=== PATIENT | female | born 1970 | race Caucasian/White ===

== ENCOUNTER → 2021-02-04 | Outpatient (CLI) | payer BC | LOC: KOH-I 13:40 | DX: R06.02 Shortness of breath (principal); R05 Cough | CPT/HCPCS: 71046 ==

== ENCOUNTER 2021-11-11 18:56 | Emergency (ER) | payer SELFPAY | END 2021-11-11 22:29 | disposition home or self-care (01) | LOC: ER1 18:56 | DX: S92.021A Displaced fracture of anterior process of right calcaneus, initial encounter for closed fracture (principal); Z90.710 Acquired absence of both cervix and uterus; Z88.8 Allergy status to other drugs, medicaments and biological substances; X50.1XXA Overexertion from prolonged static or awkward postures, initial encounter | CPT/HCPCS: 73610; 73630; 99283 ==

== ENCOUNTER → 2021-12-06 | Outpatient (CLI) | payer BC | LOC: KOH-I 09:29 | DX: S92.021A Displaced fracture of anterior process of right calcaneus, initial encounter for closed fracture (principal) | CPT/HCPCS: 73630 ==

== ENCOUNTER → 2021-12-20 | Outpatient (CLI) | payer BC | LOC: KOH-I 09:18 | DX: S92.021D Displaced fracture of anterior process of right calcaneus, subsequent encounter for fracture with routine healing (principal) | CPT/HCPCS: 73630 ==

== ENCOUNTER → 2022-01-06 | Outpatient (CLI) | payer BC | LOC: KOH-I 15:36 | DX: S92.001A Unspecified fracture of right calcaneus, initial encounter for closed fracture (principal) | CPT/HCPCS: 73630 ==

== ENCOUNTER → 2022-02-01 | Outpatient (CLI) | payer BC | LOC: LAB 11:41 | DX: U07.1 COVID-19 (principal); J01.00 Acute maxillary sinusitis, unspecified; R51.9 Headache, unspecified; J02.9 Acute pharyngitis, unspecified | CPT/HCPCS: U0002 ==